=== PATIENT | female | born 1980 | race Caucasian/White ===

== ENCOUNTER → 2023-01-21 10:51 | Outpatient (BNVA) | payer BC, SELFPAY | PROVIDERS: PCP Family Medicine; Visit Provider Specialist | DX: G51.2 Melkersson's syndrome (principal); R20.2 Paresthesia of skin; G60.8 Other hereditary and idiopathic neuropathies; G57.30 Lesion of lateral popliteal nerve, unspecified lower limb; R29.90 Unspecified symptoms and signs involving the nervous system | CPT/HCPCS: 36415; 82164; 86160; 86162; 86235; 86255; 86376 ==